=== PATIENT | male | born 1985 | race African-American/Black ===

== ENCOUNTER 2016-08-03 23:01 | Emergency (ER) | payer OTHER ==
--- NOTE | ~2016-08-03 | CT105 ---
[facility] A Service [facility] RADIOLOGY TEXT RESULTS PATIENT: IRENE SANDOVAL LOCATION: [facility] : [birth year] UNIT #: [id number] AGE: [address]: LARRY CHOUDHARY APRN SEX: M ORDER DR: [id number] [facility] [address] [place], [place] [address] [id number] E MR#: [id number] Acc #: [id number] NAME: IRENE SANDOVAL. : 1985 SEX: M STUDY DATE/TIME: 08/04/2016 3:17 UNIT: [id number] ROOM: STUDY DESCRIPTION: CT Pelvis W Cont Attending Physician: Larry Choudhary Aprn Ordering Physician: Larry Choudhary Aprn Primary Care Physician: Primary Care Physician No MEDICAL IMAGING REPORT This report is preliminary unless electronic signature is present EXAM CT pelvis with contrast INDICATIONS Scrotal abscess for the past 3 days. PROCEDURE Contrast-enhanced CT of the pelvis The CT exam was performed with one or more of the following radiation dose reduction techniques: automatic exposure control, adjustment of mA and/or kV according to patient size, and iterative reconstruction. COMPARISON None FINDINGS There is fluid along the inferior aspect of the right dona scrotum, which extends to a small organized rim-enhancing collection along the posterior base of the scrotum that measures up to 2.8 cm. No other drainable fluid collection. No aggressive appearing bone lesion. IMPRESSION 2.8 cm abscess along the posterior base of the scrotum with some fluid along the inferior aspect of the right hemiscrotum. Dictated by... Lucas Dunn M.D. THIS IS AN ELECTRONICALLY VERIFIED REPORT Lucas Dunn M.D. at 08/04/2016 9:53 PM [facility] A Service [facility] RADIOLOGY TEXT RESULTS PATIENT: IRENE SANDOVAL LOCATION: [facility] : 87 UNIT #: [id number] AGE: [address]: LARRY CHOUDHARY APRN SEX: M ORDER DR: Contreras TD: 08/04/2016 09:04 JOB #: [id number] MEDICAL IMAGING REPORT Page 1 of 1 COPY
[~2016-08-03 23:01] MED LIST: AMOXICILLIN500 M1 PO; BACTRIM DS TABL1 TA1 PO; FLONASE16 GM; MOTRIN600 M1 PO; NAPROXEN PO; OMNICEF300 MG PO
[2016-08-04 02:41] LABS: BASOPHIL# 0.1 X10e3 (0-0.3); BASOPHIL% 0.6 % (0-2.5); EOSINOPHIL# 0.3 X10e3 (0-0.7); EOSINOPHIL% 1.8 % (0.0-7.0); HEMATOCRIT 40.8 % (38.0-50.0); HEMOGLOBIN 13.2 gm/dL (13.0-16.0); LYMPHOCYTE# 1.8 X10e3 (1.0-3.5); LYMPHOCYTE% 12.8 % (17.0-45.0); MEAN CORPUSCULAR HEMOGLOBIN 27.7 PG (28-34); MEAN CORPUSCULAR HGB CONC 32.3 g/dL (30-36); MONOCYTE# 1.3 X10e3 (0-1.0); MONOCYTE% 8.8 % (3.0-12.0); NEUTROPHIL# 10.8 X10e3 (1.5-7.1); PLATELET COUNT 291 X10e3 (140-420); RED BLOOD COUNT 4.75 X10e (3.90-5.60); RED CELL DISTRIBUTION WIDTH 14.1 % (11.0-15.5); WHITE BLOOD COUNT 14.2 X10e3 (4.0-10.5)
[2016-08-04 02:42] LABS: DIFF IND NO
[2016-08-04 02:56] LABS: BUN/CREATININE RATIO 8.88; CALCIUM SERUM 9.3 mg/dL (8.4-10.2); CREATININE SERUM 0.9 mg/dL (0.6-1.4); GLOM FILT RATE Estimated 133.3 mL/min (>60); POTASSIUM 3.2 mmol/L (3.5-5.1)
== END 2016-08-04 05:40 | disposition home or self-care (01) ==
LOC: CED 23:01
PROVIDERS: Nurse Practitioner Family
DX: L02.214 Cutaneous abscess of groin (principal); I10 Essential (primary) hypertension; Z90.49 Acquired absence of other specified parts of digestive tract; Z79.899 Other long term (current) drug therapy; F17.210 Nicotine dependence, cigarettes, uncomplicated
CPT/HCPCS: 36415; 55100; 72193; 80048; 85025; 87070; 87205; 96361; 96374; 96375; 99284; J2270; J2405; Q9967